=== PATIENT | female | born 1960 | race Two or more races ===

== ENCOUNTER 2017-07-25 16:06 | Inpatient (IN) | payer MEDICARE, MEDICAID ==
--- NOTE | 2017-07-25 16:29 | ED Physician Chart ---
ED Chief Complaint/HPI - Patient Information Date Seen:: 07/25/17 Time Seen:: 16:15 Chief Complaint:: Dyspnea History of Present Illness:: onset x one day of dyspnea with a 3 day history of fever, cough, and congestion ; no report of H/As, S/T, neck pain, C/P, Abd. Pain, A/N/V/D/C, chills, or urinary s/s Historian:: Patient, EMS Review:: Old Chart Reviewed ED Review of Systems - Review of Systems General/Constitutional: Fever, No chills, No weight loss, No weakness, No diaphoresis, No edema, No loss of appetite Skin: No skin lesions, No rash, No bruising Head: No headache, No light-headedness Eyes: No loss of vision, No pain, No diplopia ENT: No earache, Nasal drainage, No sore throat, No tinnitus Neck: No neck pain, No swelling, No thyromegaly, No stiffness, No mass noted Cardio Vascular: No chest pain, No palpitations, No PND, No orthopnea, No edema Pulmonary: SOB, Cough, No sputum, No wheezing GI: No nausea, No vomiting, No diarrhea, No pain, No melena, No hematochezia, No constipation, No hematemesis G/U: No dysuria, No frequency, No hematuria Metabolic Specialist: No vaginal discharge, No abnormal vaginal bleed, No contraction Musculoskeletal: No bone or joint pain, No back pain, No muscle pain Endocrine: No polyuria, No polydipsia Psychiatric: No prior psych history, No depression, No anxiety, No suicidal ideation, No homicidal ideation, No auditory hallucination, No visual hallucination Hematopoietic: No bruising, No lymphadenopathy Allergic/Immuno: No urticaria, No angioedema Neurological: No syncope, No focal symptoms, No weakness, No paresthesia, No headache, No seizure, No dizziness, No confusion, No vertigo ED Past Medical History - Past Medical History Obtainable: Yes Past Medical History: HTN Family History: HTN Social History: Non Smoker, No Alcohol, No Drug Use, Single, Care Facility Surgical History: None Psychiatricy History: None Medication: Reviewed ED Physical Exam - Physical Examination General/Constitutional: Awake, Well-developed, well-nourished, Alert, No distress, GCS 15, Non-toxic appearing, Ambulatory Head: Atraumatic Eyes: Lids, conjuctiva normal, PERRL, EOMI Skin: Nl inspection, No rash, No skin lesions, No ecchymosis, Well hydrated, No lymphadenopathy ENMT: External ears, nose nl, TM canals nl, Nasal exam nl, Lips, teeth, gums nl , Oropharynx nl, Tonsils nl Neck: Nontender, Full ROM w/o pain, No JVD, No nuchal rigidity, No bruit, No mass, No stridor Respiratory: Nl effort/Exclusion Other Respiratory comments:: Lungs: + Rales and Rhonchi Cardio Vascular: RRR, No murmur, gallop, rubs, NL S1 S2, Carotid/Femoral/Distal pulses equal bilaterally GI: No tenderness/rebounding/guarding, No organomegaly, No hernia, Normal BS's, Nondistended, No mass/bruits, No McBurney tenderness : No CVA tenderness Extremities: No tenderness or effusion, Full ROM, normal strength in all extremities, No edema, Normal digits & nails Neuro/Psych: Alert/oriented, DTR's symmetric, Normal sensory exam, Normal motor strength, Judgement/insight normal, Mood normal, Normal gait, No focal deficits Misc: Normal back, No paraspinal tenderness ED Labs/Radiology/EKG Results - Lab Results Comments:: WBC: 16.7 - Radiology Results Comments:: + RML Infiltrate - EKG Interpretations EKG Time:: 16:38 Rate & Rhythm: 127; ST Comments:: non-specific st-t changes ED Septic Shock - . Is Septic Shock (SBP<90, OR Lactate>4 mmol\L) present?: No ED Reassessment (Disposition) - Reassessment Reassessment Condition:: Improved - Diagnosis Diagnosis:: Fever; Leukocytosis; Sepsis; PNA; Cough/Congestion; Dyspnea - Aftercare/Follow up Instructions Aftercare/Follow-Up Instructions:: Counseled pt regarding lab results/diagnosis & need follow up, Counseled pt & family regarding lab results/diagnosis & need follow up - Patient Disposition Discharge/Transfer:: Acute Care w/in this hosp Accepting Physician:: Dr. clark Time Called:: 1814 Time Responded:: 18:15 Admitted to:: Telemetry Spoke to:: Dr. Clark Admitting Medical Physician:: Dr. Kadhium Condition at Disposition:: Stable, Improved
[2017-07-25] MEDS ORDERED: Sodium Chloride 0.9% 1,000 ML IV ONE (16:45)
[2017-07-25 17:04] LABS: HEMATOCRIT 40.1 % (41.0-60); HEMOGLOBIN 13.5 gm/dL (12-16); MEAN CELL VOLUME 92.6 fl (81-100); MEAN CORPUSCULAR HEMOGLOBIN 31.1 pg (27.0-31.0); MEAN CORPUSCULAR HGB CONC 33.6 pg (28.0-36.0); MEAN PLATELET VOLUME 7.7 fl; PLATELET COUNT 400 Th/cmm (150-400); RED BLOOD COUNT 4.34 Mil/cmm (3.80-5.10)
[2017-07-25 17:06] LABS: MANUAL DIFF REQUIRED? YES; WHITE BLOOD COUNT 16.7 Th/cmm (4.8-10.8)
[2017-07-25 17:20] LABS: INR 0.95 (0.5-1.4); PROTHROMBIN TIME (TEST) 9.9 SECONDS (9.5-11.5)
[2017-07-25 17:22] LABS: ALB/GLOB RATIO 1.4 (1.0-1.8); ALBUMIN 4.5 gm/dL (3.7-5.3); ANION GAP 13.6 (7.0-16.0); BILIRUBIN,TOTAL 0.4 mg/dL (0.3-1.0); CALCIUM SERUM 9.7 mg/dL (8.6-10.3); CARBON DIOXIDE 24.7 mEq/L (21.0-31.0); CREATININE - SERUM 1.4 mg/dL (0.6-1.2); GFR NON AFRICAN-AMERICAN 41.3 ml/min; POTASSIUM SERUM 4.3 mEq/L (3.5-5.1); TOTAL PROTEIN,SERUM 7.8 gm/dL (6.0-8.3)
[2017-07-25 17:37] LABS: EOSINOPHIL 12 % (0-5); LYMPHOCYTE 6 % (20-50); MONOCYTE 7 % (2-10); NEUTROPHILS 75 % (40-80)
[2017-07-25] MEDS ORDERED: Levofloxacin 500mg/100mL 500 MG/100 ML BAG IV ONE ×2 (17:53→18:06)
[2017-07-25] MEDS ORDERED: cefTRIAXone 1 GM in Sodium Chloride 0.9% 50 ML IV SCH (19:30)
[2017-07-25] MEDS: Albuterol/Ipratropium Neb 3 ML AERS HHN SCH (20:45)
[2017-07-25] MEDS ORDERED: Azithromycin 500 MG in Sodium Chloride 0.9% 250 ML IV SCH (21:00)
[2017-07-25] MEDS: D5-0.45NS w/20 mEq KCL 1,000 ML IV SCH (21:06)
[2017-07-25] MEDS: Hydrocodone/APAP 5mg/325mg Tab PO PRN (22:06)
[2017-07-25] MEDS ORDERED: Hydrocodone/APAP 5mg/325mg Tab PO PRN (22:34)
[2017-07-25] MEDS: Enoxaparin 40 mg/0.4 mL 0.4mL Syr SUBQ SCH (23:07)
--- NOTE | 2017-07-25 23:48 | History & Physical ---
ADMIT DATE: 07/25/2017 CHIEF COMPLAINT: Cough and congestion for a few days' duration. HISTORY OF PRESENT ILLNESS: The patient is a 56-year-old female with a long history of asthma and chronic back pain, presented to the Emergency Room with cough and congestion for a few days' duration, evaluated by the physician. Workup sent for pneumonia, admitted to medical floor, started on IV fluid and antibiotic. Denies any nausea, any vomiting, chest pain. No dysuria or hematuria. PAST MEDICAL HISTORY: Significant for asthma and chronic back pain. PAST SURGICAL HISTORY: Back surgery. ALLERGIES: ERYTHROMYCIN AND PENICILLIN. SOCIAL HISTORY: No smoking, no alcohol, no drug. FAMILY HISTORY: Noncontributory. REVIEW OF SYSTEMS: IMMUNOSYSTEM: No history of chronic renal disorder. CARDIOVASCULAR SYSTEM: Coronary artery disease. ENDOCRINE SYSTEM: No diabetes or thyroid problem. GASTROINTESTINAL SYSTEM: No upper or lower gastrointestinal bleed. NEUROLOGICAL SYSTEM: No seizure disorder. SKELETOMUSCULAR SYSTEM: No muscular dystrophy. RESPIRATORY SYSTEM: She has history of asthma. PHYSICAL EXAMINATION: GENERAL: She is awake, alert, oriented, mildly congested, not in distress. VITAL SIGNS: Temperature 100.5, heart rate 118 and blood pressure 121/66. HEENT: Normocephalic. Pupils equal, reactive to light and accommodation. Sclerae clear. NECK: Supple. Negative for lymphadenopathy, JVD or bruit. CHEST: Entry of air bilateral diminished associated with rhonchi. HEART: S1 and S2 normal. No gallop rhythm. ABDOMEN: Soft and bowel sounds positive. EXTREMITIES: No edema. NEUROLOGIC: She is awake, alert and oriented. No focal motor or sensory deficits. Cranial nerves 2-12 intact. LABORATORY DATA: White blood cell 16.7, hemoglobin 13.5, hematocrit 40.1 and platelet 400. PT 9.9, INR 0.95. Sodium 134, potassium 4.3, BUN 25, creatinine 0.4 and glucose 119. ASSESSMENT: 1. Pneumonia. 2. Asthma. 3. Chronic back pain. 4. Hyperlipidemia. PLAN: The patient is in the hospital under Dr. Clark's service, started on IV fluid, antibiotic and breathing treatment. The patient will resume her home medication. Influenza A and B screen ordered. The patient is a full code. Lovenox 40 subcutaneous daily ordered. JOB# [id number]
[2017-07-26 00:12] LABS: INF A SCREEN NEG FOR INF A; INF B SCREEN NEG FOR INF B
[2017-07-26] MEDS: Albuterol/Ipratropium Neb 3 ML AERS HHN SCH ×4 (01:24→19:19)
[2017-07-26 06:20] LABS: % BASOPHILS 0.1 % (0.0-2.0); % EOSINOPHILS 16.5 % (0.0-5.0); % LYMPHOCYTES 10.3 % (20.0-50.0); % NEUTROPHILS 65.1 % (40.0-80.0); EOSINOPHILE ABSOLUTE 2.6 Th/cmm (0.1-0.4); HEMOGLOBIN 11.9 gm/dL (12-16); LYMPHOCYTE ABSOLUTE 1.6 Th/cmm (1.5-3.0); MEAN CELL VOLUME 92.4 fl (81-100); MEAN CORPUSCULAR HEMOGLOBIN 32.1 pg (27.0-31.0); MEAN CORPUSCULAR HGB CONC 34.8 pg (28.0-36.0); MEAN PLATELET VOLUME 8.2 fl; MONOCYTE ABSOLUTE 1.3 Th/cmm (0.3-1.0); NEUTROPHILE ABSOLUTE 10.4 Th/cmm (1.8-8.0); PLATELET COUNT 350 Th/cmm (150-400); RED BLOOD COUNT 3.71 Mil/cmm (3.80-5.10); RED CELL DISTRIBUTION WIDTH 13.8 % (11.5-20.0)
[2017-07-26 06:22] LABS: ALB/GLOB RATIO 1.4 (1.0-1.8); ALBUMIN 3.8 gm/dL (3.7-5.3); ANION GAP 13.8 (7.0-16.0); BILIRUBIN,TOTAL 0.4 mg/dL (0.3-1.0); CALCIUM SERUM 8.5 mg/dL (8.6-10.3); CREATININE - SERUM 2.2 mg/dL (0.6-1.2); GFR AFRICAN-AMERICAN 29.7 ml/min (>90); GFR NON AFRICAN-AMERICAN 24.5 ml/min; POTASSIUM SERUM 3.8 mEq/L (3.5-5.1); TOTAL PROTEIN,SERUM 6.5 gm/dL (6.0-8.3)
[2017-07-26 06:35] LABS: WHITE BLOOD COUNT 15.9 Th/cmm (4.8-10.8)
[2017-07-26 06:36] LABS: HEMATOCRIT 34.3 % (41.0-60)
[2017-07-26] MEDS ORDERED: Non-Formulary Item 1 EA (Alprazolam [Xanax*] 1 MG) PO SCH (09:00)
--- NOTE | 2017-07-26 09:46 | Diagnostic Imaging Report ---
Portable chest x-ray HISTORY: Cough The heart size appears somewhat enlarged. No focal pulmonary processes. No hilar or mediastinal abnormalities. Surgical changes seen within the cervical spine. IMPRESSION: 1. No acute focal pulmonary processes 2. Generous heart size
[2017-07-26] MEDS ORDERED: Vancomycin HCl 1.5 GM in Sodium Chloride 0.9% 500 ML IV ONE (10:00)
[2017-07-26] MEDS: Enoxaparin 40 mg/0.4 mL 0.4mL Syr SUBQ SCH ×2 (10:16→22:33)
[2017-07-26] MEDS ORDERED: Probiotic Screen MC PRN (10:30)
[2017-07-26] MEDS: Hydrocodone/APAP 5mg/325mg Tab PO PRN ×2 (12:41→23:31)
--- NOTE | 2017-07-26 17:27 | Internal Medicine Prog Note ---
Internal Medicine Subjective - Subjective Service Date: 07/26/17 Patient seen and examined:: with staff (SHE FEELS BETTER) Patient is:: awake, verbal, in bed Patient Complaints of:: congestion Per staff patient has:: no adverse event, eating well Internal Medicine Objective - Results Result Diagrams: 07/26/17 05:20 07/26/17 05:20 Recent Labs: Laboratory Last Values WBC 15.9 Th/cmm (4.8-10.8) H 07/26/17 05:20 RBC 3.71 Mil/cmm (3.80-5.10) L 07/26/17 05:20 Hgb 11.9 gm/dL (12-16) L 07/26/17 05:20 Hct 34.3 % (41.0-60) L D 07/26/17 05:20 MCV 92.4 fl (81-100) 07/26/17 05:20 MCH 32.1 pg (27.0-31.0) H 07/26/17 05:20 MCHC Differential 34.8 pg (28.0-36.0) 07/26/17 05:20 RDW 13.8 % (11.5-20.0) 07/26/17 05:20 Plt Count 350 Th/cmm (150-400) 07/26/17 05:20 MPV 8.2 fl 07/26/17 05:20 Neutrophils % 65.1 % (40.0-80.0) 07/26/17 05:20 Lymphocytes % 10.3 % (20.0-50.0) L 07/26/17 05:20 Monocytes % 8.0 % (2.0-10.0) 07/26/17 05:20 Eosinophils % 16.5 % (0.0-5.0) H 07/26/17 05:20 Basophils % 0.1 % (0.0-2.0) 07/26/17 05:20 Neutrophils (Manual) 75 % (40-80) 07/25/17 16:55 Lymphocytes 6 % (20-50) L 07/25/17 16:55 Monocytes 7 % (2-10) 07/25/17 16:55 Eosinophils 12 % (0-5) H 07/25/17 16:55 PT 9.9 SECONDS (9.5-11.5) 07/25/17 16:55 INR 0.95 (0.5-1.4) 07/25/17 16:55 PTT (Actin FS) 27.5 SECONDS (26.0-38.0) 07/25/17 16:55 D-Dimer 1380 ng/mL (100-400) H 07/25/17 16:55 Sodium 135 mEq/L (136-145) L 07/26/17 05:20 Potassium 3.8 mEq/L (3.5-5.1) 07/26/17 05:20 Chloride 100 mEq/L (98-107) 07/26/17 05:20 Carbon Dioxide 25.0 mEq/L (21.0-31.0) 07/26/17 05:20 Anion Gap 13.8 (7.0-16.0) 07/26/17 05:20 BUN 31 mg/dL (7-25) H 07/26/17 05:20 Creatinine 2.2 mg/dL (0.6-1.2) H 07/26/17 05:20 Est GFR ( Amer) 29.7 ml/min (>90) 07/26/17 05:20 Est GFR (Non-Af Amer) 24.5 ml/min 07/26/17 05:20 BUN/Creatinine Ratio 14.1 07/26/17 05:20 Glucose 114 mg/dL (70-105) H 07/26/17 05:20 Whole Bld Lactic Acid 1.93 mmol/L (0.60-1.99) 07/25/17 16:55 Calcium 8.5 mg/dL (8.6-10.3) L 07/26/17 05:20 Total Bilirubin 0.4 mg/dL (0.3-1.0) 07/26/17 05:20 AST 23 U/L (13-39) 07/26/17 05:20 ALT 58 U/L (7-52) H 07/26/17 05:20 Alkaline Phosphatase 48 U/L (34-104) 07/26/17 05:20 Creatine Kinase 87 U/L (30-223) 07/25/17 16:55 Troponin I 0.01 ng/mL (0.01-0.05) 07/25/17 16:55 B-Natriuretic Peptide 14.7 pg/mL (5.0-100.0) 07/25/17 16:55 Total Protein 6.5 gm/dL (6.0-8.3) 07/26/17 05:20 Albumin 3.8 gm/dL (3.7-5.3) 07/26/17 05:20 Globulin 2.7 gm/dL 07/26/17 05:20 Albumin/Globulin Ratio 1.4 (1.0-1.8) 07/26/17 05:20 Triglycerides 262 mg/dL (<150) H 07/25/17 16:55 Cholesterol 142 mg/dL (<200) 07/25/17 16:55 LDL Cholesterol Direct 72 mg/dL (75-193) L 07/25/17 16:55 HDL Cholesterol 32 mg/dL (23-92) 07/25/17 16:55 Serum , Qual NEGATIVE (NEGATIVE) 07/25/17 16:55 Influenza A (Rapid) NEG FOR INF A 07/25/17 23:00 Influenza B (Rapid) NEG FOR INF B 07/25/17 23:00 - Physical Exam Vitals and I&O: Vital Signs Temp 97.8 F 07/26/17 13:00 Pulse 94 07/26/17 13:00 Resp 18 07/26/17 13:00 BP 107/51 07/26/17 13:00 Pulse Ox 96 07/26/17 13:00 Intake & Output 07/25/17 07/26/17 07/26/17 18:59 06:59 18:59 Intake Total 650 Output Total 0 Balance 650 Weight (lbs) 99.79 kg Intake: Intake, IV Amount 550 Vancomycin HCl 1.25 gm In 250 Sodium Chloride 0.9% 250 ml @ 165 mls/hr IV ONCE ONE Rx#:[id number] Oral 100 Tube Feeding 0 TPN/PPN 0 Blood Product 0 Lipid 0 Albumin 0 Other 0 Output: Gastric Drainage 0 Urine 0 Stool 0 Urine/Stool Mix 0 Emesis 0 Hemodialysis 0 Other 0 Other: # Voids 1 # Bowel Movements 0 Active Medications: Current Medications Acetaminophen (Tylenol) 650 mg PO Q4H PRN PRN Reason: Fever > 101 Stop: 09/23/17 19:14 Acetaminophen/Hydrocodone Bitart ([place] 5mg/325mg) 1 tab PO Q6H PRN PRN Reason: Pain (Moderate) Stop: 09/23/17 21:29 Last Admin: 07/26/17 12:41 Dose: 1 tab Albuterol/Ipratropium (Duoneb Neb) 3 ml HHN Q6HRT [facility] Stop: 09/23/17 19:29 Last Admin: 07/26/17 12:04 Dose: 3 ml Alprazolam (Xanax) 1 mg PO HS PRN; Protocol PRN Reason: Anxiety Stop: 09/23/17 21:30 Enoxaparin Sodium (Lovenox) 40 mg SUBQ Q12H [facility] Stop: 09/23/17 22:59 Last Admin: 07/26/17 10:16 Dose: 40 mg Hydroxyzine HCl (Atarax) 10 mg PO Q6H PRN; Protocol PRN Reason: Itching Stop: 09/24/17 17:15 Potassium Chloride/Dextrose/Sod Cl (D5-0.45ns W/20 Meq Kcl) 1,000 mls @ 75 mls/ hr IV .[id number] [facility] Stop: 09/23/17 19:16 Last Admin: 07/25/17 21:06 Dose: 75 mls/hr Levofloxacin (Levaquin Pb) 500 mg in 100 mls @ 100 mls/hr IV Q24HR [facility] Stop: 09/24/17 17:59 Miscellaneous (Vancomycin Iv Per Pharmacy) 1 ea PRN [facility] Stop: 09/24/17 02:14 Miscellaneous (Probiotic Screen) 1 ea PRN PRN PRN Reason: PROTOCOL Stop: 09/24/17 10:29 Montelukast Sodium (Singulair) 10 mg PO DAILY [facility] Stop: 09/24/17 08:59 Last Admin: 07/26/17 10:16 Dose: 10 mg Prednisone (Deltasone) 3 mg PO DAILY [facility] Stop: 09/25/17 08:59 General: alert HEENT: NC/AT, anicteric sclerae, throat clear Neck: Supple, No JVD, No thyromegaly, +2 carotid pulse wo bruit, No LAD Lungs: congested Cardiovascular: RRR, Normal S1, Normal S2, without murmur Abdomen: non-tender, non-distended Extremities: clear Neurological: no change Internal Medicine Assmt/Plan - Assessment Assessment: 1.PNEUMONIA 2.ASHMA - Plan Plan: CONTINUE ON CURRENT MEDICATION AND DIET.
[2017-07-26] MEDS: Levofloxacin 500mg/100mL 500 MG/100 ML BAG IV SCH (18:13)
[2017-07-26] MEDS: D5-0.45NS w/20 mEq KCL 1,000 ML IV SCH ×2 (18:18→21:58)
[2017-07-26 19:17] LABS: URINE MICROSCOPIC INDICATED? YES; URINE SOURCE MIDSTREAM
[2017-07-26 19:28] LABS: URINE BILIRUBIN NEGATIVE (NEGATIVE); URINE BLOOD NEGATIVE (NEGATIVE); URINE GLUCOSE (UA) NEGATIVE (NEGATIVE); URINE KETONE NEGATIVE (NEGATIVE); URINE LEUKOCYTE ESTERASE NEGATIVE (NEGATIVE); URINE NITRATE NEGATIVE (NEGATIVE); URINE PROTEIN NEGATIVE (NEGATIVE); URINE UROBILINOGEN 0.2 E.U./dL (0.2 - 1.0)
[2017-07-26 20:58] LABS: URINE CLARITY CLEAR (CLEAR); URINE COLOR YELLOW
[2017-07-26 21:01] LABS: URINE BACTERIA NONE SEEN /hpf (NONE SEEN); URINE EPITHELIAL CELLS NONE SEEN /lpf (FEW); URINE RBC NONE SEEN /hpf (0-5); URINE WBC NONE SEEN /hpf (0-5)
--- NOTE | 2017-07-27 01:12 | Consultation ---
DATE OF CONSULTATION: 07/25/2017 HISTORY OF PRESENT ILLNESS: A 56-year-old female was brought to the Emergency Room with complaint of shortness of breath. The patient is known to have asthma. Workup shows pneumonia. Infectious consultation was called. Discussed with the staff, antibody adjusted. The patient's examination was possible. PAST MEDICAL HISTORY: Low back pain, asthma, back surgery. SOCIAL HISTORY: Nonsmoker. REVIEW OF SYSTEMS: A 14-point review of system negative except above. PHYSICAL EXAMINATION: GENERAL: The patient is well-nourished female. VITAL SIGNS: Temperature is 100.5, pulse 118, respirations 18, and blood pressure 121/61. HEENT: Mild pallor. No icterus. No plaque. NECK: Supple. LUNGS: Breath sounds bilateral. CARDIOVASCULAR: ____. ABDOMEN: Soft, bowel sounds present. LYMPHATICS: No thyromegaly. No cervical lymph nodes. LABORATORY DATA: White count is 16,000, hemoglobin is 13 grams, and platelets 400. Serology influenza A and B negative. Chest x-ray shows infiltrate. DIAGNOSES: Pneumonia and sepsis. The patient started on vancomycin, Levaquin. Discontinued other antibiotic. PENICILLIN allergy Avoid. ERYTHROMYCIN allergy avoid. Cultures are pending. Bronchodilator treatment. Xanax for anxiety. Rest of the care as ordered in [facility]. Thank you Dr. Clark for this consultation. Rest of the care as ordered in [facility]. JOB# [id number]
[2017-07-27] MEDS: Albuterol/Ipratropium Neb 3 ML AERS HHN SCH ×4 (01:21→18:46)
[2017-07-27] MEDS ORDERED: Albuterol/Ipratropium Neb 3 ML AERS HHN ONE (06:30)
[2017-07-27] MEDS ORDERED: Ipratropium Neb 0.5 mg/2.5 mL UD HHN SCH (07:00)
[2017-07-27] MEDS ORDERED: Albuterol Nebulizer 2.5mg/3mL HHN SCH (07:00)
[2017-07-27] MEDS: predniSONE 5 mg/5 mL UDC PO SCH (09:30)
[2017-07-27] MEDS ORDERED: Vancomycin HCl 1.5 GM in Sodium Chloride 0.9% 500 ML IV ONE (10:00)
[2017-07-27] MEDS: Enoxaparin 40 mg/0.4 mL 0.4mL Syr SUBQ SCH ×2 (10:30→23:26)
[2017-07-27] MEDS: Lactobacillus Rhamnosus GG 15 Billion CFU CAP.SPRINK PO SCH (10:32)
[2017-07-27] MEDS: Levofloxacin 500mg/100mL 500 MG/100 ML BAG IV SCH (18:09)
--- NOTE | 2017-07-27 19:47 | Infectious Disease Prog Note ---
Infectious Disease Subjective - Review of Systems Service Date: 07/26/17 Subjective: cc pneuminia hpi- wbc decreased sp cx negative ros o fver o/e vs chets claera bd soft ext pulse Infectious Disease Objective - Results Result Diagrams: 07/26/17 05:20 07/26/17 05:20 Recent Labs: Laboratory Last Values WBC 15.9 Th/cmm (4.8-10.8) H 07/26/17 05:20 RBC 3.71 Mil/cmm (3.80-5.10) L 07/26/17 05:20 Hgb 11.9 gm/dL (12-16) L 07/26/17 05:20 Hct 34.3 % (41.0-60) L D 07/26/17 05:20 MCV 92.4 fl (81-100) 07/26/17 05:20 MCH 32.1 pg (27.0-31.0) H 07/26/17 05:20 MCHC Differential 34.8 pg (28.0-36.0) 07/26/17 05:20 RDW 13.8 % (11.5-20.0) 07/26/17 05:20 Plt Count 350 Th/cmm (150-400) 07/26/17 05:20 MPV 8.2 fl 07/26/17 05:20 Neutrophils % 65.1 % (40.0-80.0) 07/26/17 05:20 Lymphocytes % 10.3 % (20.0-50.0) L 07/26/17 05:20 Monocytes % 8.0 % (2.0-10.0) 07/26/17 05:20 Eosinophils % 16.5 % (0.0-5.0) H 07/26/17 05:20 Basophils % 0.1 % (0.0-2.0) 07/26/17 05:20 Neutrophils (Manual) 75 % (40-80) 07/25/17 16:55 Lymphocytes 6 % (20-50) L 07/25/17 16:55 Monocytes 7 % (2-10) 07/25/17 16:55 Eosinophils 12 % (0-5) H 07/25/17 16:55 PT 9.9 SECONDS (9.5-11.5) 07/25/17 16:55 INR 0.95 (0.5-1.4) 07/25/17 16:55 PTT (Actin FS) 27.5 SECONDS (26.0-38.0) 07/25/17 16:55 D-Dimer 1380 ng/mL (100-400) H 07/25/17 16:55 Sodium 135 mEq/L (136-145) L 07/26/17 05:20 Potassium 3.8 mEq/L (3.5-5.1) 07/26/17 05:20 Chloride 100 mEq/L (98-107) 07/26/17 05:20 Carbon Dioxide 25.0 mEq/L (21.0-31.0) 07/26/17 05:20 Anion Gap 13.8 (7.0-16.0) 07/26/17 05:20 BUN 31 mg/dL (7-25) H 07/26/17 05:20 Creatinine 2.2 mg/dL (0.6-1.2) H 07/26/17 05:20 Est GFR ( Amer) 29.7 ml/min (>90) 07/26/17 05:20 Est GFR (Non-Af Amer) 24.5 ml/min 07/26/17 05:20 BUN/Creatinine Ratio 14.1 07/26/17 05:20 Glucose 114 mg/dL (70-105) H 07/26/17 05:20 Whole Bld Lactic Acid 1.93 mmol/L (0.60-1.99) 07/25/17 16:55 Calcium 8.5 mg/dL (8.6-10.3) L 07/26/17 05:20 Total Bilirubin 0.4 mg/dL (0.3-1.0) 07/26/17 05:20 AST 23 U/L (13-39) 07/26/17 05:20 ALT 58 U/L (7-52) H 07/26/17 05:20 Alkaline Phosphatase 48 U/L (34-104) 07/26/17 05:20 Creatine Kinase 87 U/L (30-223) 07/25/17 16:55 Troponin I 0.01 ng/mL (0.01-0.05) 07/25/17 16:55 B-Natriuretic Peptide 14.7 pg/mL (5.0-100.0) 07/25/17 16:55 Total Protein 6.5 gm/dL (6.0-8.3) 07/26/17 05:20 Albumin 3.8 gm/dL (3.7-5.3) 07/26/17 05:20 Globulin 2.7 gm/dL 07/26/17 05:20 Albumin/Globulin Ratio 1.4 (1.0-1.8) 07/26/17 05:20 Triglycerides 262 mg/dL (<150) H 07/25/17 16:55 Cholesterol 142 mg/dL (<200) 07/25/17 16:55 LDL Cholesterol Direct 72 mg/dL (75-193) L 07/25/17 16:55 HDL Cholesterol 32 mg/dL (23-92) 07/25/17 16:55 Serum , Qual NEGATIVE (NEGATIVE) 07/25/17 16:55 Urine Source MIDSTREAM 07/26/17 16:05 Urine Color YELLOW 07/26/17 16:05 Urine Clarity CLEAR (CLEAR) 07/26/17 16:05 Urine pH 6.0 (4.6 - 8.0) 07/26/17 16:05 Ur Specific [place] 1.020 (1.005-1.030) 07/26/17 16:05 Urine Protein NEGATIVE mg/dL (NEGATIVE) 07/26/17 16:05 Urine Glucose (UA) NEGATIVE mg/dL (NEGATIVE) 07/26/17 16:05 Urine Ketones NEGATIVE mg/dL (NEGATIVE) 07/26/17 16:05 Urine Blood NEGATIVE (NEGATIVE) 07/26/17 16:05 Urine Nitrate NEGATIVE (NEGATIVE) 07/26/17 16:05 Urine Bilirubin NEGATIVE (NEGATIVE) 07/26/17 16:05 Urine Urobilinogen 0.2 E.U./dL (0.2 - 1.0) 07/26/17 16:05 Ur Leukocyte Esterase NEGATIVE (NEGATIVE) 07/26/17 16:05 Urine RBC NONE SEEN /hpf (0-5) 07/26/17 16:05 Urine WBC NONE SEEN /hpf (0-5) 07/26/17 16:05 Ur Epithelial Cells NONE SEEN /lpf (FEW) 07/26/17 16:05 Urine Bacteria NONE SEEN /hpf (NONE SEEN) 07/26/17 16:05 Vancomycin Trough 13.1 ug/mL (10-20) 07/27/17 06:00 Influenza A (Rapid) NEG FOR INF A 07/25/17 23:00 Influenza B (Rapid) NEG FOR INF B 07/25/17 23:00 - Physical Exam Vitals and I&O: Vital Signs Temp 97.6 F 07/27/17 18:56 Pulse 90 07/27/17 18:56 Resp 20 07/27/17 18:56 BP 115/52 07/27/17 18:56 Pulse Ox 96 07/27/17 18:56 Intake & Output 07/27/17 07/27/17 07/28/17 06:59 18:59 06:59 Intake Total 1100 250 Balance 1100 250 Weight (lbs) 104.236 kg 103.873 kg Intake: Intake, IV Amount 1100 D5-0.45NS w/20 mEq KCL 1, 1000 000 ml @ 75 mls/hr IV . [id number] [facility] Rx#:[id number] Levofloxacin 500mg/100mL 100 500 mg In 100 ml @ 100 mls/hr IV Q24HR [facility] Rx#: [id number] Oral 250 Other: # Voids 3 # Bowel Movements 0 Active Medications: Current Medications Acetaminophen (Tylenol) 650 mg PO Q4H PRN PRN Reason: Fever > 101 Stop: 09/23/17 19:14 Last Admin: 07/27/17 04:30 Dose: 650 mg Acetaminophen/Hydrocodone Bitart ([place] 5mg/325mg) 1 tab PO Q6H PRN PRN Reason: Pain (Moderate) Stop: 09/23/17 21:29 Last Admin: 07/26/17 23:31 Dose: 1 tab Albuterol Sulfate (Albuterol 2.5mg/3ml Neb Ud) 2.5 mg HHN Q6HRT [facility] Stop: 07/29/17 06:59 Albuterol/Ipratropium (Duoneb Neb) 3 ml HHN Q6HRT [facility] Stop: 09/23/17 19:29 Last Admin: 07/27/17 18:46 Dose: 3 ml Alprazolam (Xanax) 1 mg PO HS PRN; Protocol PRN Reason: Anxiety Stop: 09/23/17 21:30 Last Admin: 07/26/17 21:51 Dose: 1 mg Enoxaparin Sodium (Lovenox) 40 mg SUBQ Q12H [facility] Stop: 09/23/17 22:59 Last Admin: 07/27/17 10:30 Dose: 40 mg Hydroxyzine HCl (Atarax) 10 mg PO Q6H PRN; Protocol PRN Reason: Itching Stop: 09/24/17 17:15 Last Admin: 07/26/17 18:12 Dose: 10 mg Potassium Chloride/Dextrose/Sod Cl (D5-0.45ns W/20 Meq Kcl) 1,000 mls @ 75 mls/ hr IV .[id number] [facility] Stop: 09/23/17 19:16 Last Admin: 07/26/17 21:58 Dose: 75 mls/hr Levofloxacin (Levaquin Pb) 500 mg in 100 mls @ 100 mls/hr IV Q24HR [facility] Stop: 09/24/17 17:59 Last Admin: 07/27/17 18:09 Dose: 100 mls/hr Ipratropium [place] (Atrovent Neb 0.5mg/2.5ml) 0.5 mg HHN Q6HRT [facility] Stop: 07/29/17 06:59 Lactobacillus Rhamnosus (Culturelle 15b) 1 each PO DAILY [facility] Stop: 09/25/17 09:59 Last Admin: 07/27/17 10:32 Dose: 1 each Miscellaneous (Vancomycin Iv Per Pharmacy) 1 ea PRN [facility] Stop: 09/24/17 02:14 Miscellaneous (Probiotic Screen) 1 ea PRN PRN PRN Reason: PROTOCOL Stop: 09/24/17 10:29 Montelukast Sodium (Singulair) 10 mg PO DAILY [facility] Stop: 09/24/17 08:59 Last Admin: 07/27/17 09:30 Dose: 10 mg Prednisone (Prednisone) 3 mg PO DAILY [facility] Stop: 09/25/17 08:59 Last Admin: 07/27/17 09:30 Dose: 3 mg Infectious Disease Assmt/Plan - Problem List Patient Problems: All Active Problems COUGH AND BODY ACHES, LOW SAO2 (Acute)
[2017-07-27] MEDS: Hydrocodone/APAP 5mg/325mg Tab PO PRN (20:58)
--- NOTE | 2017-07-27 23:33 | Internal Medicine Prog Note ---
Internal Medicine Subjective - Subjective Service Date: 07/27/17 Patient seen and examined:: with staff (SHE FEELS WELL,NO SOB.) Patient is:: awake, verbal, in bed Patient Complaints of:: congestion Per staff patient has:: no adverse event, eating well Internal Medicine Objective - Results Result Diagrams: 07/26/17 05:20 07/26/17 05:20 Recent Labs: Laboratory Last Values WBC 15.9 Th/cmm (4.8-10.8) H 07/26/17 05:20 RBC 3.71 Mil/cmm (3.80-5.10) L 07/26/17 05:20 Hgb 11.9 gm/dL (12-16) L 07/26/17 05:20 Hct 34.3 % (41.0-60) L D 07/26/17 05:20 MCV 92.4 fl (81-100) 07/26/17 05:20 MCH 32.1 pg (27.0-31.0) H 07/26/17 05:20 MCHC Differential 34.8 pg (28.0-36.0) 07/26/17 05:20 RDW 13.8 % (11.5-20.0) 07/26/17 05:20 Plt Count 350 Th/cmm (150-400) 07/26/17 05:20 MPV 8.2 fl 07/26/17 05:20 Neutrophils % 65.1 % (40.0-80.0) 07/26/17 05:20 Lymphocytes % 10.3 % (20.0-50.0) L 07/26/17 05:20 Monocytes % 8.0 % (2.0-10.0) 07/26/17 05:20 Eosinophils % 16.5 % (0.0-5.0) H 07/26/17 05:20 Basophils % 0.1 % (0.0-2.0) 07/26/17 05:20 Neutrophils (Manual) 75 % (40-80) 07/25/17 16:55 Lymphocytes 6 % (20-50) L 07/25/17 16:55 Monocytes 7 % (2-10) 07/25/17 16:55 Eosinophils 12 % (0-5) H 07/25/17 16:55 PT 9.9 SECONDS (9.5-11.5) 07/25/17 16:55 INR 0.95 (0.5-1.4) 07/25/17 16:55 PTT (Actin FS) 27.5 SECONDS (26.0-38.0) 07/25/17 16:55 D-Dimer 1380 ng/mL (100-400) H 07/25/17 16:55 Sodium 135 mEq/L (136-145) L 07/26/17 05:20 Potassium 3.8 mEq/L (3.5-5.1) 07/26/17 05:20 Chloride 100 mEq/L (98-107) 07/26/17 05:20 Carbon Dioxide 25.0 mEq/L (21.0-31.0) 07/26/17 05:20 Anion Gap 13.8 (7.0-16.0) 07/26/17 05:20 BUN 31 mg/dL (7-25) H 07/26/17 05:20 Creatinine 2.2 mg/dL (0.6-1.2) H 07/26/17 05:20 Est GFR ( Amer) 29.7 ml/min (>90) 07/26/17 05:20 Est GFR (Non-Af Amer) 24.5 ml/min 07/26/17 05:20 BUN/Creatinine Ratio 14.1 07/26/17 05:20 Glucose 114 mg/dL (70-105) H 07/26/17 05:20 Whole Bld Lactic Acid 1.93 mmol/L (0.60-1.99) 07/25/17 16:55 Calcium 8.5 mg/dL (8.6-10.3) L 07/26/17 05:20 Total Bilirubin 0.4 mg/dL (0.3-1.0) 07/26/17 05:20 AST 23 U/L (13-39) 07/26/17 05:20 ALT 58 U/L (7-52) H 07/26/17 05:20 Alkaline Phosphatase 48 U/L (34-104) 07/26/17 05:20 Creatine Kinase 87 U/L (30-223) 07/25/17 16:55 Troponin I 0.01 ng/mL (0.01-0.05) 07/25/17 16:55 B-Natriuretic Peptide 14.7 pg/mL (5.0-100.0) 07/25/17 16:55 Total Protein 6.5 gm/dL (6.0-8.3) 07/26/17 05:20 Albumin 3.8 gm/dL (3.7-5.3) 07/26/17 05:20 Globulin 2.7 gm/dL 07/26/17 05:20 Albumin/Globulin Ratio 1.4 (1.0-1.8) 07/26/17 05:20 Triglycerides 262 mg/dL (<150) H 07/25/17 16:55 Cholesterol 142 mg/dL (<200) 07/25/17 16:55 LDL Cholesterol Direct 72 mg/dL (75-193) L 07/25/17 16:55 HDL Cholesterol 32 mg/dL (23-92) 07/25/17 16:55 Serum , Qual NEGATIVE (NEGATIVE) 07/25/17 16:55 Urine Source MIDSTREAM 07/26/17 16:05 Urine Color YELLOW 07/26/17 16:05 Urine Clarity CLEAR (CLEAR) 07/26/17 16:05 Urine pH 6.0 (4.6 - 8.0) 07/26/17 16:05 Ur Specific [place] 1.020 (1.005-1.030) 07/26/17 16:05 Urine Protein NEGATIVE mg/dL (NEGATIVE) 07/26/17 16:05 Urine Glucose (UA) NEGATIVE mg/dL (NEGATIVE) 07/26/17 16:05 Urine Ketones NEGATIVE mg/dL (NEGATIVE) 07/26/17 16:05 Urine Blood NEGATIVE (NEGATIVE) 07/26/17 16:05 Urine Nitrate NEGATIVE (NEGATIVE) 07/26/17 16:05 Urine Bilirubin NEGATIVE (NEGATIVE) 07/26/17 16:05 Urine Urobilinogen 0.2 E.U./dL (0.2 - 1.0) 07/26/17 16:05 Ur Leukocyte Esterase NEGATIVE (NEGATIVE) 07/26/17 16:05 Urine RBC NONE SEEN /hpf (0-5) 07/26/17 16:05 Urine WBC NONE SEEN /hpf (0-5) 07/26/17 16:05 Ur Epithelial Cells NONE SEEN /lpf (FEW) 07/26/17 16:05 Urine Bacteria NONE SEEN /hpf (NONE SEEN) 07/26/17 16:05 Vancomycin Trough 13.1 ug/mL (10-20) 07/27/17 06:00 Influenza A (Rapid) NEG FOR INF A 07/25/17 23:00 Influenza B (Rapid) NEG FOR INF B 07/25/17 23:00 - Physical Exam Vitals and I&O: Vital Signs Temp 97.6 F 07/27/17 18:56 Pulse 90 07/27/17 18:56 Resp 20 07/27/17 18:56 BP 115/52 07/27/17 18:56 Pulse Ox 96 07/27/17 18:56 Intake & Output 07/27/17 07/27/17 07/28/17 06:59 18:59 06:59 Intake Total 1100 250 Balance 1100 250 Weight (lbs) 104.236 kg 103.873 kg Intake: Intake, IV Amount 1100 D5-0.45NS w/20 mEq KCL 1, 1000 000 ml @ 75 mls/hr IV . [id number] [facility] Rx#:[id number] Levofloxacin 500mg/100mL 100 500 mg In 100 ml @ 100 mls/hr IV Q24HR [facility] Rx#: [id number] Oral 250 Other: # Voids 3 # Bowel Movements 0 Active Medications: Current Medications Acetaminophen (Tylenol) 650 mg PO Q4H PRN PRN Reason: Fever > 101 Stop: 09/23/17 19:14 Last Admin: 07/27/17 04:30 Dose: 650 mg Acetaminophen/Hydrocodone Bitart (Neligh 5mg/325mg) 1 tab PO Q6H PRN PRN Reason: Pain (Moderate) Stop: 09/23/17 21:29 Last Admin: 07/27/17 20:58 Dose: 1 tab Albuterol Sulfate (Albuterol 2.5mg/3ml Neb Ud) 2.5 mg HHN Q6HRT [facility] Stop: 07/29/17 06:59 Albuterol/Ipratropium (Duoneb Neb) 3 ml HHN Q6HRT [facility] Stop: 09/23/17 19:29 Last Admin: 07/27/17 18:46 Dose: 3 ml Alprazolam (Xanax) 1 mg PO HS PRN; Protocol PRN Reason: Anxiety Stop: 09/23/17 21:30 Last Admin: 07/26/17 21:51 Dose: 1 mg Enoxaparin Sodium (Lovenox) 40 mg SUBQ Q12H [facility] Stop: 09/23/17 22:59 Last Admin: 07/27/17 10:30 Dose: 40 mg Hydroxyzine HCl (Atarax) 10 mg PO Q6H PRN; Protocol PRN Reason: Itching Stop: 09/24/17 17:15 Last Admin: 07/26/17 18:12 Dose: 10 mg Potassium Chloride/Dextrose/Sod Cl (D5-0.45ns W/20 Meq Kcl) 1,000 mls @ 75 mls/ hr IV .[id number] [facility] Stop: 09/23/17 19:16 Last Admin: 07/26/17 21:58 Dose: 75 mls/hr Levofloxacin (Levaquin Pb) 500 mg in 100 mls @ 100 mls/hr IV Q24HR [facility] Stop: 09/24/17 17:59 Last Admin: 07/27/17 18:09 Dose: 100 mls/hr Ipratropium Terral (Atrovent Neb 0.5mg/2.5ml) 0.5 mg HHN Q6HRT [facility] Stop: 07/29/17 06:59 Lactobacillus Rhamnosus (Culturelle 15b) 1 each PO DAILY [facility] Stop: 09/25/17 09:59 Last Admin: 07/27/17 10:32 Dose: 1 each Miscellaneous (Vancomycin Iv Per Pharmacy) 1 ea PRN [facility] Stop: 09/24/17 02:14 Miscellaneous (Probiotic Screen) 1 [facility] PRN PRN PRN Reason: PROTOCOL Stop: 09/24/17 10:29 Montelukast Sodium (Singulair) 10 mg PO DAILY [facility] Stop: 09/24/17 08:59 Last Admin: 07/27/17 09:30 Dose: 10 mg Prednisone (Prednisone) 3 mg PO DAILY [facility] Stop: 09/25/17 08:59 Last Admin: 07/27/17 09:30 Dose: 3 mg General: alert HEENT: NC/AT, anicteric sclerae, throat clear Neck: Supple, No JVD, No thyromegaly, +2 carotid pulse wo bruit, No LAD Lungs: congested Cardiovascular: RRR, Normal S1, Normal S2, without murmur Abdomen: non-tender, non-distended Extremities: clear Neurological: no change Internal Medicine Assmt/Plan - Assessment Assessment: 1.PNEUMONIA 2.ASHMA - Plan Plan: CONTINUE ON CURRENT MEDICATION AND DIET.CBC AND CMP IN AM.
[2017-07-28] MEDS: Albuterol/Ipratropium Neb 3 ML AERS HHN SCH (01:07)
[2017-07-28 06:35] LABS: % BASOPHILS 0.7 % (0.0-2.0); % EOSINOPHILS 21.8 % (0.0-5.0); % LYMPHOCYTES 25.2 % (20.0-50.0); % MONOCYTES 9.9 % (2.0-10.0); % NEUTROPHILS 42.4 % (40.0-80.0); BASOPHILE ABSOLUTE 0.1 Th/cumm (0-0.2); EOSINOPHILE ABSOLUTE 2.7 Th/cmm (0.1-0.4); HEMATOCRIT 32.8 % (41.0-60); HEMOGLOBIN 11.1 gm/dL (12-16); LYMPHOCYTE ABSOLUTE 3.2 Th/cmm (1.5-3.0); MEAN CELL VOLUME 92.8 fl (81-100); MEAN CORPUSCULAR HEMOGLOBIN 31.4 pg (27.0-31.0); MEAN CORPUSCULAR HGB CONC 33.9 pg (28.0-36.0); MEAN PLATELET VOLUME 8.2 fl; MONOCYTE ABSOLUTE 1.2 Th/cmm (0.3-1.0); NEUTROPHILE ABSOLUTE 5.3 Th/cmm (1.8-8.0); PLATELET COUNT 358 Th/cmm (150-400); RED BLOOD COUNT 3.54 Mil/cmm (3.80-5.10); RED CELL DISTRIBUTION WIDTH 14.1 % (11.5-20.0)
[2017-07-28 06:40] LABS: WHITE BLOOD COUNT 12.5 Th/cmm (4.8-10.8)
[2017-07-28] MEDS ORDERED: Guaifenesin DM 10 ML UDC PO PRN (06:51)
[2017-07-28 07:05] LABS: ANION GAP 11.7 (7.0-16.0); BUN - UREA NITROGEN 25 mg/dL (7-25); CALCIUM SERUM 9.2 mg/dL (8.6-10.3); CARBON DIOXIDE 26.2 mEq/L (21.0-31.0); CHLORIDE 104 mEq/L (98-107); CREATININE - SERUM 0.9 mg/dL (0.6-1.2); GFR AFRICAN-AMERICAN > 60.0 ml/min (>90); GFR NON AFRICAN-AMERICAN > 60.0 ml/min; GLUCOSE 93 mg/dL (70-105); POTASSIUM SERUM 3.9 mEq/L (3.5-5.1); SODIUM SERUM 138 mEq/L (136-145)
[2017-07-28 07:10] LABS: ALB/GLOB RATIO 1.3 (1.0-1.8); ALBUMIN 3.8 gm/dL (3.7-5.3); ALKALINE PHOSPHATASE 43 U/L (34-104); ANION GAP 12.8 (7.0-16.0); BILIRUBIN,TOTAL 0.2 mg/dL (0.3-1.0); BUN - UREA NITROGEN 25 mg/dL (7-25); CALCIUM SERUM 9.3 mg/dL (8.6-10.3); CARBON DIOXIDE 26.1 mEq/L (21.0-31.0); CHLORIDE 103 mEq/L (98-107); CREATININE - SERUM 0.9 mg/dL (0.6-1.2); GFR AFRICAN-AMERICAN > 60.0 ml/min (>90); GFR NON AFRICAN-AMERICAN > 60.0 ml/min; GLUCOSE 93 mg/dL (70-105); POTASSIUM SERUM 3.9 mEq/L (3.5-5.1); SGOT 33 U/L (13-39); SGPT/ALT 54 U/L (7-52); SODIUM SERUM 138 mEq/L (136-145); TOTAL PROTEIN,SERUM 6.7 gm/dL (6.0-8.3)
[2017-07-28] MEDS: predniSONE 5 mg/5 mL UDC PO SCH (08:12)
[2017-07-28] MEDS: Lactobacillus Rhamnosus GG 15 Billion CFU CAP.SPRINK PO SCH (08:12)
[2017-07-28] MEDS ORDERED: Vancomycin HCl 1.5 GM in Sodium Chloride 0.9% 500 ML IV ONE (09:00)
[2017-07-28] MEDS: Enoxaparin 40 mg/0.4 mL 0.4mL Syr SUBQ SCH (11:56)
--- NOTE | 2017-07-28 14:21 | Discharge Summary ---
DATE OF DISCHARGE: 07/28/2017 DATE OF DISCHARGE: 07/28/2017. FINAL DIAGNOSES: 1. Pneumonia. 2. Asthma. 3. Rheumatoid arthritis. 4. Hyperlipidemia. REVIEW OF HISTORY: The patient is a 56-year-old female with a long history of rheumatoid arthritis, asthma, hyperlipidemia, presented to the Emergency Room with cough, shortness of breath and evaluated by the ER physician. Initial workup significant for pneumonia, admitted to the hospital. Dr. Natali Walsh consulted on the case. PHYSICAL EXAMINATION: VITAL SIGNS: Temperature was 100.5, heart rate 118, blood pressure 121/66. CHEST: Diminished breathing sound. HEART: S1, S2 normal. ABDOMEN: Soft, bowel sounds positive. EXTREMITIES: No edema. NEUROLOGIC: She was awake, alert, oriented. LABORATORY DATA: White blood 16.7, hemoglobin 13.5, hematocrit 40.1. Sodium 134, potassium 4.3, BUN 25, creatinine 0.4. The patient is started on IV antibiotic, breathing treatment 2 liter nasal cannula oxygen. COURSE OF HOSPITALIZATION: During hospitalization, the patient was seen by Dr. Kareem Walsh, Infectious Disease and he continued her antibiotic. On 07/25/2017, the patient still has congestion and shortness of breath, chest, mild diminished breathing sound. Heart, S1, S2 normal, abdomen, soft, bowel sounds positive. White blood cells hemoglobin 11.5. PHYSICAL EXAMINATION: CHEST: Diminished breathing sound. HEART: S1, S2 normal. ABDOMEN: Soft, bowel sounds positive. GENERAL: On 07/28/2017, the patient feels well, no shortness of breath, less cough, no fever, temperature 97.7, heart rate 85. CHEST: Clear to auscultation. ABDOMEN: Soft, bowel sounds positive. EXTREMITIES: No edema. NEUROLOGIC: Awake, alert, oriented. No focal motor or sensory deficits. Cranial nerves 2-12 is intact. LABORATORY DATA: White blood cell 12.5, hemoglobin 11.1. Sodium 138, potassium 3.9. DISPOSITION: The patient discharged home on Levaquin 750 daily for 7 days. Follow up with primary physician as outpatient. CONDITION ON DISCHARGE: Stable. JOB# [id number]
--- NOTE | 2017-07-28 16:11 | Infectious Disease Prog Note ---
Infectious Disease Subjective - Review of Systems Service Date: 07/28/17 Subjective: cc pneuminia hpi- wbc decreased sp cx negative schedule fo r discharge po levaquin given ros o fver o/e vs chets claera bd soft ext pulse Infectious Disease Objective - Results Result Diagrams: 07/28/17 06:00 07/28/17 06:00 Recent Labs: Laboratory Last Values WBC 12.5 Th/cmm (4.8-10.8) H D 07/28/17 06:00 RBC 3.54 Mil/cmm (3.80-5.10) L 07/28/17 06:00 Hgb 11.1 gm/dL (12-16) L 07/28/17 06:00 Hct 32.8 % (41.0-60) L 07/28/17 06:00 MCV 92.8 fl (81-100) 07/28/17 06:00 MCH 31.4 pg (27.0-31.0) H 07/28/17 06:00 MCHC Differential 33.9 pg (28.0-36.0) 07/28/17 06:00 RDW 14.1 % (11.5-20.0) 07/28/17 06:00 Plt Count 358 Th/cmm (150-400) 07/28/17 06:00 MPV 8.2 fl 07/28/17 06:00 Neutrophils % 42.4 % (40.0-80.0) 07/28/17 06:00 Lymphocytes % 25.2 % (20.0-50.0) 07/28/17 06:00 Monocytes % 9.9 % (2.0-10.0) 07/28/17 06:00 Eosinophils % 21.8 % (0.0-5.0) H 07/28/17 06:00 Basophils % 0.7 % (0.0-2.0) 07/28/17 06:00 Neutrophils (Manual) 75 % (40-80) 07/25/17 16:55 Lymphocytes 6 % (20-50) L 07/25/17 16:55 Monocytes 7 % (2-10) 07/25/17 16:55 Eosinophils 12 % (0-5) H 07/25/17 16:55 PT 9.9 SECONDS (9.5-11.5) 07/25/17 16:55 INR 0.95 (0.5-1.4) 07/25/17 16:55 PTT (Actin FS) 27.5 SECONDS (26.0-38.0) 07/25/17 16:55 D-Dimer 1380 ng/mL (100-400) H 07/25/17 16:55 Sodium 138 mEq/L (136-145) 07/28/17 06:00 Potassium 3.9 mEq/L (3.5-5.1) 07/28/17 06:00 Chloride 103 mEq/L (98-107) 07/28/17 06:00 Carbon Dioxide 26.1 mEq/L (21.0-31.0) 07/28/17 06:00 Anion Gap 12.8 (7.0-16.0) 07/28/17 06:00 BUN 25 mg/dL (7-25) 07/28/17 06:00 Creatinine 0.9 mg/dL (0.6-1.2) 07/28/17 06:00 Est GFR ( Amer) > 60.0 ml/min (>90) 07/28/17 06:00 Est GFR (Non-Af Amer) > 60.0 ml/min 07/28/17 06:00 BUN/Creatinine Ratio 27.8 07/28/17 06:00 Glucose 93 mg/dL (70-105) 07/28/17 06:00 Whole Bld Lactic Acid 1.93 mmol/L (0.60-1.99) 07/25/17 16:55 Calcium 9.3 mg/dL (8.6-10.3) 07/28/17 06:00 Total Bilirubin 0.2 mg/dL (0.3-1.0) L 07/28/17 06:00 AST 33 U/L (13-39) 07/28/17 06:00 ALT 54 U/L (7-52) H 07/28/17 06:00 Alkaline Phosphatase 43 U/L (34-104) 07/28/17 06:00 Creatine Kinase 87 U/L (30-223) 07/25/17 16:55 Troponin I 0.01 ng/mL (0.01-0.05) 07/25/17 16:55 B-Natriuretic Peptide 14.7 pg/mL (5.0-100.0) 07/25/17 16:55 Total Protein 6.7 gm/dL (6.0-8.3) 07/28/17 06:00 Albumin 3.8 gm/dL (3.7-5.3) 07/28/17 06:00 Globulin 2.9 gm/dL 07/28/17 06:00 Albumin/Globulin Ratio 1.3 (1.0-1.8) 07/28/17 06:00 Triglycerides 262 mg/dL (<150) H 07/25/17 16:55 Cholesterol 142 mg/dL (<200) 07/25/17 16:55 LDL Cholesterol Direct 72 mg/dL (75-193) L 07/25/17 16:55 HDL Cholesterol 32 mg/dL (23-92) 07/25/17 16:55 Serum , Qual NEGATIVE (NEGATIVE) 07/25/17 16:55 Urine Source MIDSTREAM 07/26/17 16:05 Urine Color YELLOW 07/26/17 16:05 Urine Clarity CLEAR (CLEAR) 07/26/17 16:05 Urine pH 6.0 (4.6 - 8.0) 07/26/17 16:05 Ur Specific [place] 1.020 (1.005-1.030) 07/26/17 16:05 Urine Protein NEGATIVE mg/dL (NEGATIVE) 07/26/17 16:05 Urine Glucose (UA) NEGATIVE mg/dL (NEGATIVE) 07/26/17 16:05 Urine Ketones NEGATIVE mg/dL (NEGATIVE) 07/26/17 16:05 Urine Blood NEGATIVE (NEGATIVE) 07/26/17 16:05 Urine Nitrate NEGATIVE (NEGATIVE) 07/26/17 16:05 Urine Bilirubin NEGATIVE (NEGATIVE) 07/26/17 16:05 Urine Urobilinogen 0.2 E.U./dL (0.2 - 1.0) 07/26/17 16:05 Ur Leukocyte Esterase NEGATIVE (NEGATIVE) 07/26/17 16:05 Urine RBC NONE SEEN /hpf (0-5) 07/26/17 16:05 Urine WBC NONE SEEN /hpf (0-5) 07/26/17 16:05 Ur Epithelial Cells NONE SEEN /lpf (FEW) 07/26/17 16:05 Urine Bacteria NONE SEEN /hpf (NONE SEEN) 07/26/17 16:05 Vancomycin Trough 13.1 ug/mL (10-20) 07/27/17 06:00 Random Vancomycin 10.4 ug/mL (5.0-40.0) 07/28/17 06:00 Influenza A (Rapid) NEG FOR INF A 07/25/17 23:00 Influenza B (Rapid) NEG FOR INF B 07/25/17 23:00 - Physical Exam Vitals and I&O: Vital Signs Temp 97.7 F 07/28/17 13:44 Pulse 85 07/28/17 13:44 Resp 18 07/28/17 13:44 BP 115/60 07/28/17 13:44 Pulse Ox 94 07/28/17 13:44 Intake & Output 07/27/17 07/28/17 07/28/17 18:59 06:59 18:59 Intake Total 250 200 Balance 250 200 Weight (lbs) 103.873 kg 103.873 kg Intake: Oral 250 200 Other: # Voids 3 3 # Bowel Movements 0 0 Infectious Disease Assmt/Plan - Problem List Patient Problems: All Active Problems COUGH AND BODY ACHES, LOW SAO2 (Acute)
== END 2017-07-28 14:15 | disposition home or self-care (01) | DRG 871 ==
LOC: ER 16:06 → MSI 19:00
PROVIDERS: ADMIT Family Medicine; ATTEND Family Medicine
DX: A41.9 Sepsis, unspecified organism (principal); J18.9 Pneumonia, unspecified organism; E78.5 Hyperlipidemia, unspecified; J45.909 Unspecified asthma, uncomplicated; G89.29 Other chronic pain; M54.9 Dorsalgia, unspecified; F41.9 Anxiety disorder, unspecified; M06.9 Rheumatoid arthritis, unspecified; I10 Essential (primary) hypertension; Z88.1 Allergy status to other antibiotic agents; Z88.0 Allergy status to penicillin; Z82.49 Family history of ischemic heart disease and other diseases of the circulatory system
CPT/HCPCS: 36415-UA; 71010-TC; 80048-TC; 80053-TC; 80061-TC; 80202-TC; 81001-TC; 82550-TC; 82948-90; 83605; 83880-TC; 84484-TC; 84703-TC; 85007-TC; 85027-TC; 85379-TC; 85610-TC; 85730-TC; 86738-90; 87070; 87086-90; 87804-TC; 90779; 90784; 93005; 94640; 94760; 96375; J0456; J0696; J1650; J1956; J2405; J3370; J7030; J7040; J7512; J7613; Z7610